=== PATIENT | female | born 1945 | race Caucasian/White ===

== ENCOUNTER 2017-08-26 22:42 | Inpatient (IN) | payer MEDICARE ==
[~2017-08-26] VITALS: Ht 156.2 cm; Wt 71.5 kg
[2017-08-26] MEDS ORDERED: CEFU250S PO (23:20)
[2017-08-26] MEDS ORDERED: GABA300C10 PO (23:21)
[2017-08-26] MEDS ORDERED: ALPR0.25 PO (23:22)
[2017-08-26] MEDS ORDERED: FURO40TA6 PO (23:22)
[2017-08-26] MEDS ORDERED: DEXA10PO2 INH (23:23)
[2017-08-26] MEDS ORDERED: FOLI0.8T2 PO (23:24)
[2017-08-26] MEDS ORDERED: OMEP-110 PO (23:24)
[2017-08-26] MEDS ORDERED: SODIUM CHLORIDE 0.9%, 500ML IVBOLUS ONE (23:30)
[2017-08-26 23:51] LABS: BLOOD UREA NITROGEN 27 mg/dL (7-18)
[2017-08-26 23:56] LABS: IS PT STATUS REG ER OR PRE ER? YES
[2017-08-27 00:20] LABS: HEMATOCRIT 24.5 % (34.6-47.8); HEMOGLOBIN 8.3 g/dL (11.7-16.4); WHITE BLOOD COUNT 5.7 x10^3/uL (3.4-10)
[2017-08-27] MEDS ORDERED: SODIUM CHLORIDE 0.9%, 500ML IVBOLUS ONE (01:00)
[2017-08-27] MEDS ORDERED: PIPERACILLIN/TAZO/PMX 3.375GM 50 ML IV ONE (01:00)
[2017-08-27] MEDS ORDERED: PIPERACILLIN/TAZO/PMX 3.375GM 50 ML ONE (01:15)
[2017-08-27 02:15] VITALS: BP 109/68
[2017-08-27] MEDS ORDERED: ACETAMINOPHEN 325 MG TABLET PO PRN (03:00)
[2017-08-27] MEDS ORDERED: ONDANSETRON ODT 4 MG PO PRN (03:00)
[2017-08-27] MEDS ORDERED: BISACODYL 10 MG SUPP PR PRN (03:00)
[2017-08-27] MEDS ORDERED: DOCUSATE 100 MG CAPSULE PO PRN (03:00)
[2017-08-27] MEDS: SODIUM CHLORIDE 0.9% 1,000 ML IV SCH ×2 (04:28→18:23)
[2017-08-27] MEDS ORDERED: VANCOMYCIN PER PHARMACY MC PRN (04:30)
[2017-08-27] MEDS ORDERED: PHARMACOKINETIC MONITORING MC PRN (04:30)
[2017-08-27] MEDS: LEVOFLOXACIN/PMX 750MG/150ML 150 ML IV SCH (04:39)
[2017-08-27 05:48] LABS: IS PT STATUS REG ER OR PRE ER? NO
[2017-08-27] MEDS: VANCOMYCIN 1,400 MG in SODIUM CHLORIDE 0.9% 250 ML IV SCH (06:00)
[2017-08-27] MEDS: ALBUTEROL/IPRATROPIUM 2.5MG/0.5MG, 3 ML NPPB SCH ×4 (07:33→19:45)
[2017-08-27 07:58] VITALS: BP 104/65
[2017-08-27 08:18] LABS: HEMATOCRIT 25.1 % (34.6-47.8); HEMOGLOBIN 8.6 g/dL (11.7-16.4); WHITE BLOOD COUNT 5.4 x10^3/uL (3.4-10)
[2017-08-27] MEDS: PIPERACILLIN/TAZO 3.375 GM in SODIUM CHLORIDE 0.9% 50 ML IVPB SCH ×3 (08:37→20:47)
[2017-08-27 09:06] LABS: DIFF TOTAL CELLS COUNTED 100 CELL DIFF
[2017-08-27 09:16] LABS: ASPARTATE AMINO TRANSFERASE 30 U/L (15-37); BLOOD UREA NITROGEN 20 mg/dL (7-18)
[2017-08-27 09:57] LABS: IS PT STATUS REG ER OR PRE ER? NO
[2017-08-27] MEDS ORDERED: MAGNESIUM SULFATE PMX 2GM/50ML 50 ML IV ONE (10:00)
[2017-08-27] MEDS ORDERED: POTASSIUM PHOS 4.4 MEQ/ML IV ONE (10:00)
[2017-08-27] MEDS ORDERED: POTASSIUM PHOSPHATE 22 MEQ in SODIUM CHLORIDE 0.9% 500 ML IV ONE (10:00)
[2017-08-27 10:04] LABS: VERIFY COUNTS? YES
[2017-08-27 10:05] LABS: ANISOCYTOSIS 1+
[2017-08-27] MEDS: HYDROcodone/APAP 5/325 TABLET PO PRN ×3 (10:33→20:47)
[2017-08-27 13:25] VITALS: BP 101/62
[2017-08-27] MEDS: FUROSEMIDE 40 MG/4 ML IV SCH (18:23)
[2017-08-27] MEDS ORDERED: ONDANSETRON 8 MG TABLET PO PRN (18:30)
[2017-08-27] MEDS ORDERED: PROCHLORPERAZINE 5 MG/ML, 2ML IVPush PRN (18:30)
[2017-08-27] MEDS ORDERED: PROCHLORPERAZINE 25 MG SUPP PR PRN (18:30)
[2017-08-27] MEDS ORDERED: ONDANSETRON 2MG/ML, 2ML IVPush PRN (18:30)
[2017-08-27 19:57] VITALS: BP 125/64
[2017-08-27] MEDS: POTASSIUM CHLORIDE 20 MEQ TAB.ER.PRT PO SCH (20:51)
[2017-08-28] MEDS: HYDROcodone/APAP 5/325 TABLET PO PRN ×4 (00:18→15:39)
[2017-08-28 01:01] VITALS: BP 119/63
[2017-08-28] MEDS: SODIUM CHLORIDE 0.9% 1,000 ML IV SCH ×3 (03:30→17:35)
[2017-08-28] MEDS: PIPERACILLIN/TAZO 3.375 GM in SODIUM CHLORIDE 0.9% 50 ML IVPB SCH ×4 (03:30→21:12)
[2017-08-28] MEDS: LEVOFLOXACIN/PMX 750MG/150ML 150 ML IV SCH (04:58)
[2017-08-28 05:14] LABS: BLOOD UREA NITROGEN 17 mg/dL (7-18)
[2017-08-28 07:25] LABS: HEMATOCRIT 24.9 % (34.6-47.8); HEMOGLOBIN 8.6 g/dL (11.7-16.4); WHITE BLOOD COUNT 6.8 x10^3/uL (3.4-10)
[2017-08-28 07:26] LABS: DIFF TOTAL CELLS COUNTED 100 CELL DIFF
[2017-08-28 07:29] LABS: ANISOCYTOSIS 1+; VERIFY COUNTS? YES
[2017-08-28] MEDS: ALBUTEROL/IPRATROPIUM 2.5MG/0.5MG, 3 ML NPPB SCH ×4 (07:58→21:52)
[2017-08-28 08:00] VITALS: BP 103/58
[2017-08-28] MEDS: FUROSEMIDE 40 MG/4 ML IV SCH (08:01)
[2017-08-28] MEDS: POTASSIUM CHLORIDE 20 MEQ TAB.ER.PRT PO SCH (08:01)
[2017-08-28] MEDS: VANCOMYCIN 1,400 MG in SODIUM CHLORIDE 0.9% 250 ML IV SCH (08:01)
[2017-08-28] MEDS: PROCHLORPERAZINE 10MG TABLET PO PRN ×2 (08:03→14:40)
[2017-08-28 12:45] VITALS: BP 113/73
[2017-08-28 18:52] VITALS: BP 114/71
[2017-08-28] MEDS: MORPHINE SULFATE 4 MG/ML, 1ML IVPush PRN (21:12)
[2017-08-28] MEDS: TEMAZEPAM 15 MG CAPSULE PO PRN (23:22)
[2017-08-29] MEDS: SODIUM CHLORIDE 0.9% 1,000 ML IV SCH ×2 (02:45→08:05)
[2017-08-29] MEDS: PIPERACILLIN/TAZO 3.375 GM in SODIUM CHLORIDE 0.9% 50 ML IVPB SCH ×4 (02:45→20:46)
[2017-08-29 03:40] VITALS: BP 105/66
[2017-08-29] MEDS: LEVOFLOXACIN/PMX 750MG/150ML 150 ML IV SCH (04:50)
[2017-08-29] MEDS: VANCOMYCIN 1,400 MG in SODIUM CHLORIDE 0.9% 250 ML IV SCH (06:26)
[2017-08-29] MEDS: MORPHINE SULFATE 4 MG/ML, 1ML IVPush PRN ×2 (06:26→11:07)
[2017-08-29] MEDS: ALBUTEROL/IPRATROPIUM 2.5MG/0.5MG, 3 ML NPPB SCH ×4 (07:46→19:20)
[2017-08-29 08:29] VITALS: BP 115/65
[2017-08-29] MEDS ORDERED: MELOXICAM 15 MG TABLET PO PRN (11:00)
[2017-08-29 14:43] VITALS: BP 111/65
[2017-08-29] MEDS: CYCLOBENZAPRINE 10 MG TABLET PO PRN (15:02)
[2017-08-29] MEDS: HYDROcodone/APAP 5/325 TABLET PO PRN ×2 (15:02→19:52)
[2017-08-29 18:45] VITALS: BP 115/66
[2017-08-29 19:50] VITALS: BP 132/69
[2017-08-29] MEDS: TEMAZEPAM 15 MG CAPSULE PO PRN (22:21)
[2017-08-30] MEDS: SODIUM CHLORIDE 0.9% 1,000 ML IV SCH ×4 (00:32→23:50)
[2017-08-30 02:00] VITALS: BP 128/72
[2017-08-30] MEDS: PIPERACILLIN/TAZO 3.375 GM in SODIUM CHLORIDE 0.9% 50 ML IVPB SCH ×4 (02:36→20:44)
[2017-08-30] MEDS: LEVOFLOXACIN/PMX 750MG/150ML 150 ML IV SCH (04:42)
[2017-08-30] MEDS: HYDROcodone/APAP 5/325 TABLET PO PRN ×4 (05:08→20:45)
[2017-08-30] MEDS: VANCOMYCIN 1,400 MG in SODIUM CHLORIDE 0.9% 250 ML IV SCH (06:24)
[2017-08-30] MEDS: ALBUTEROL/IPRATROPIUM 2.5MG/0.5MG, 3 ML NPPB SCH ×4 (07:00→18:34)
[2017-08-30 07:15] VITALS: BP 105/68
[2017-08-30] MEDS: CYCLOBENZAPRINE 10 MG TABLET PO PRN ×2 (08:17→16:54)
[2017-08-30 14:25] VITALS: BP 120/76
[2017-08-30 18:50] VITALS: BP 161/73
[2017-08-31] MEDS: HYDROcodone/APAP 5/325 TABLET PO PRN ×4 (01:40→16:36)
[2017-08-31 02:40] VITALS: BP 145/80
[2017-08-31] MEDS: PIPERACILLIN/TAZO 3.375 GM in SODIUM CHLORIDE 0.9% 50 ML IVPB SCH ×3 (03:10→13:50)
[2017-08-31] MEDS: LEVOFLOXACIN/PMX 750MG/150ML 150 ML IV SCH (04:12)
[2017-08-31] MEDS: ALBUTEROL/IPRATROPIUM 2.5MG/0.5MG, 3 ML NPPB SCH ×4 (06:20→20:19)
[2017-08-31] MEDS: CYCLOBENZAPRINE 10 MG TABLET PO PRN ×2 (08:02→16:36)
[2017-08-31 08:18] VITALS: BP 124/68
[2017-08-31 13:07] VITALS: BP 121/61
[2017-08-31] MEDS ORDERED: PRED20TA PO (15:25)
[2017-08-31] MEDS ORDERED: LEVO500T47 PO (15:25)
[2017-08-31] MEDS ORDERED: AMOX1TAB64 PO (15:25)
[2017-09-01] MEDS ORDERED: VANCOMYCIN 1,400 MG in SODIUM CHLORIDE 0.9% 250 ML IV SCH (06:00)
== END 2017-09-01 09:00 | DRG 871 ==
LOC: ED 08-27 01:00 → EDIP 08-27 01:10 → 3NE 08-27 02:04 → 4WST 08-27 04:19
PROVIDERS: ADMIT Surgery; ATTEND Family Medicine
PROC: 0T9B70Z Drainage of Bladder with Drainage Device, Via Natural or Artificial Opening (ICD-10-PCS; principal; 2017-08-27)
DX: A41.9 Sepsis, unspecified organism (principal); E43 Unspecified severe protein-calorie malnutrition; C79.31 Secondary malignant neoplasm of brain; J18.1 Lobar pneumonia, unspecified organism; D69.6 Thrombocytopenia, unspecified; L03.115 Cellulitis of right lower limb; C34.31 Malignant neoplasm of lower lobe, right bronchus or lung; D64.9 Anemia, unspecified; J44.0 Chronic obstructive pulmonary disease with (acute) lower respiratory infection; J44.1 Chronic obstructive pulmonary disease with (acute) exacerbation; L03.116 Cellulitis of left lower limb; I10 Essential (primary) hypertension; J98.01 Acute bronchospasm; Y95 Nosocomial condition; Z79.52 Long term (current) use of systemic steroids; Z87.891 Personal history of nicotine dependence; Z68.29 Body mass index [BMI] 29.0-29.9, adult
CPT/HCPCS: 36415; 71010; 71250; 80048; 80053; 80061; 80202; 81001; 83605; 83735; 84100; 84145; 84443; 84484; 85025; 87040; 87070; 87205; 93005; 94640; 96361; 96365; J1940; J1956; J2543; J3370; J7512; J7620; Q0162; Q0164; J0780; J3475; J7030; J7040; J7050